=== PATIENT | female | born 1990 | race Caucasian/White ===

== ENCOUNTER 2021-01-30 16:04 | Emergency (ER) | payer SELFPAY ==
[~2021-01-30] VITALS: Ht 160 cm; Wt 97.4 kg
--- NOTE | 2021-01-30 16:39 | PHYS DOC ---
Past History Additional Past Medical Histor: PTSD; "hydradentist supratiba" skin condition (FRANCOIS PATEL APRN) Past Surgical History: , Oophorectomy, Tubal ligation, Other Additional Past Surgical Histo: ectopic preg (FRANCOIS PATEL APRN) Alcohol Use: Rarely (FRANCOIS PATEL APRN) General Adult EDM: Chief Complaint: COUGH HPI: HPI: Patient is a 30-year-old female who presents to the emergency department for multiple complaints including nonproductive cough, shortness of breath, fever, generalized chest tightness, nausea, vomiting, diarrhea that started 1/2 weeks ago. Chest tightness is worse with deep inspiration and cough. She has been taking [id number]-[id number] cough medication at home without any relief in her symptoms. Patient reports that she was seen at her primary care provider's office after the onset of her symptoms and had a negative Covid test. Patient denies any sick exposures, loss of taste or smell. She is not vaccinated for COVID-19. (FRANCOIS PATEL APRN) Review of Systems: Review of Systems: 14 body systems of the review of systems have been reviewed. See HPI for pertinent positive and negative responses, otherwise all other systems are negative, nonpertinent or noncontributory (FRANCOIS PATEL APRN) Current Medications: Current Meds: Current Medications Medications (Trade) Dose Ordered Sig/Toño Start Time Stop Time Status Last Admin Dose Admin Sodium Chloride 1,000 ml @ 1,000 mls/hr 1X ONCE 01/30/21 16:45 01/30/21 17:44 UNV (FRANCOIS PATEL APRN) Allergies: Allergies: Allergies Coded Allergies Type Severity Reaction Last Updated Verified No Known Drug Allergies 01/30/21 No (FRANCOIS PATEL APRN) Physical Exam: PE: Constitutional: Well developed, well nourished, no acute distress, non-toxic appearance. [] HENT: Normocephalic, atraumatic, bilateral external ears normal, oropharynx moist, no oral exudates, nose normal. [] Eyes: PERRL, EOMI, conjunctiva normal, no discharge. [] Neck: Normal range of motion, no stridor Cardiovascular:Heart rate tachycardia rhythm, no murmur [] Lungs & Thorax: Bilateral breath sounds clear to auscultation [] Abdomen: Bowel sounds normal, soft, no tenderness, no masses, no pulsatile m asses. [] Skin: Warm, dry, no erythema, no rash. [] Back: Normal range of motion Extremities: No tenderness, no cyanosis, no clubbing, ROM intact, no edema. [] Neurologic: Alert and oriented X 3, normal motor function, normal sensory function, no focal deficits noted. [] Psychologic: Affect normal, judgement normal, mood normal. [] (FRANCOIS PATEL APRN) Current Patient Data: Labs: Laboratory Tests Test 01/30/21 17:00 White Blood Count 14.8 x10^3/uL Red Blood Count 4.31 x10^6/uL Hemoglobin 12.4 g/dL Hematocrit 36.8 % Mean Corpuscular Volume 85 fL Mean Corpuscular Hemoglobin 29 pg Mean Corpuscular Hemoglobin Concent 34 g/dL Red Cell Distribution Width 14.0 % Platelet Count 673 x10^3/uL Neutrophils (%) (Auto) 60 % Lymphocytes (%) (Auto) 31 % Monocytes (%) (Auto) 5 % Eosinophils (%) (Auto) 4 % Basophils (%) (Auto) 1 % Neutrophils # (Auto) 8.8 x10^3uL Lymphocytes # (Auto) 4.6 x10^3/uL Monocytes # (Auto) 0.8 x10^3/uL Eosinophils # (Auto) 0.6 x10^3/uL Basophils # (Auto) 0.1 x10^3/uL Sodium Level 140 mmol/L Potassium Level 3.9 mmol/L Chloride Level 105 mmol/L Carbon Dioxide Level 24 mmol/L Anion Gap 11 Blood Urea Nitrogen 9 mg/dL Creatinine 0.8 mg/dL Estimated GFR (Cockcroft-Gault) 83.7 Glucose Level 100 mg/dL Calcium Level 9.0 mg/dL Troponin I High Sensitivity < 4 ng/L Influenza Type A (Rapid) Negative Influenza Type B (Rapid) Negative Current Medications Medications (Trade) Dose Ordered Sig/Toño Route PRN Reason Start Time Stop Time Status Last Admin Dose Admin Sodium Chloride 1,000 ml @ 1,000 mls/hr 1X ONCE IV 01/30/21 16:45 01/30/21 17:44 01/30/21 16:58 Vital Signs: Vital Signs Date Time Temp Pulse Resp B/P (MAP) Pulse Ox O2 Delivery O2 Flow Rate FiO2 01/30/21 16:18 98.8 108 18 125/68 (87) 98 Room Air (FRANCOIS PATEL APRN) EKG: EKG: EKG performed by ER staff at 1644 shows sinus tachycardia with a rate of 104, QTC of 432, no STEMI read by Dr. Jeffries at 1709. [] (FRANCOIS PATEL APRN) Radiology/Procedures: Radiology/Procedures: []PROCEDURE: PORTABLE CHEST 1V EXAM: Chest, single view. HISTORY: Cough. Shortness of air. COMPARISON: None. FINDINGS: A frontal view of the chest is obtained. There is no infiltrate, pleural effusion or pneumothorax. The heart is normal in size. IMPRESSION: No acute pulmonary finding. Electronically signed by: Yari Craven MD (01/30/2021 4:52 PM) [id number] DICTATED AND SIGNED BY: YARI CRAVEN MD DATE: 01/30/211651 CC: FRANCOIS PATEL APRN; PCP,NO ~MTH0 0 (FRANCOIS PATEL APRN) Heart Score: C/O Chest Pain: Yes HEART Score for Chest Pain: HEART Score for Chest Pain Response (Comments) Value History Slighlty/Non-Suspicious 0 Age < 45 0 Risk Factors No Risk Factors 0 Total 0 Risk Factors: Risk Factors: DM, Current or recent (<one month) smoker, HTN, HLP, family history of CAD, obesity. Risk Scores: Score 0 - 3: 2.5% MACE over next 6 weeks - Discharge Home Score 4 - 6: 20.3% MACE over next 6 weeks - Admit for Clinical Observation Score 7 - 10: 72.7% MACE over next 6 weeks - Early Invasive Strategies (FRANCOIS PATEL APRN) Course & Med Decision Making: Course & Med Decision Making Pertinent Labs and Imaging studies reviewed. (See chart for details) [] Patient presents to the emergency department for multiple complaints including a productive cough, shortness of breath, fever, nausea, vomiting, diarrhea, generalized chest tightness that is worse with cough. Patient reports nausea but no vomiting today. She had an episode of diarrhea today. Patient is mildly tachycardic, she is afebrile and not hypoxic. Work-up in the ER consisted of blood work, EKG, chest x-ray. Patient's tachycardia was treated with IV fluids. Following treatment in the emergency department, patient's tachycardia has improved and her heart rate is 98. Patient's O2 saturations remain normal and she is not hypoxic. Patient's chest x-ray shows no acute findings. Negative influenza test, negative troponin, negative BMP. My mild leukocytosis noted with white blood cell count of 14.8 but patient has reported vomiting. Patient was Covid tested in the emergency department and she will be notified of those results when they become available in approximately 1 to 2 days via telephone. Patient advised to self isolate until she receives these results. Patient will be discharged home with albuterol inhaler that she can use for shortness of breath and Tessalon Perles for her cough. Patient advised to take Tylenol and/or ibuprofen for her pain or fevers. Advised to increase fluids and rest. I discussed with patient all findings and diagnostic testing as well as the need to follow-up with PCP for further evaluation and treatment or return to the ER if any new or worsening symptoms. Strict return precautions were also discussed at length. Patient voiced understanding and agreement with the plan. Patient is hemodynamically stable at the time of disposition. (FRANCOIS PATEL APRN) Dragon Disclaimer: Dragon Disclaimer: This electronic medical record was generated, in whole or in part, using a voice recognition dictation system. (FRANCOIS PATEL APRN) Departure Departure: Impression: Primary Impression: Person under investigation for COVID-19 Disposition: HOME / SELF CARE / HOMELESS Condition: GOOD Referrals: PCP,NO (PCP) Patient Instructions: Cough, Adult Additional Instructions: You were seen in the emergency department for cough, shortness of breath, fever, generalized chest tightness with coughing. Your work-up in the ER was unremarkable. You had a negative influenza test. We tested you in the emergency department today for COVID-19 you will be notified of those results and they become available in approximately 2 days. Please self isolate until you receive these results. Please increase your fluids and rest. Please take Tylenol and/or ibuprofen for your pain or fevers. You are being discharged home with an albuterol inhaler that you can use as needed for shortness of breath. You are also being discharged home with a cough medication, please use this as directed. Follow-up with your primary care provider tomorrow regarding your ER visit. Please return to the emergency department if you develop worsening of your shortness of breath, high fevers refractory to treatment, intractable nause a or vomiting, chest pain, weakness. Scripts Benzonatate (BENZONATATE) 200 Mg Capsule 1 CAP PO PRN TID PRN for cough for 7 Days, #21 CAP 0 Refills Prov: FRANCOIS PATEL APRN 01/30/21 Albuterol Sulfate (PROAIR HFA INHALER) 8.5 Gm Hfa.aer.ad 2 PUFF IH PRN Q4-6HRS PRN for wheezing for 21 Days, #1 INHALER 0 Refills as needed for wheezing Prov: FRANCOIS PATEL APRN 01/30/21 Attending Co-Sign Attending Co-Sign The patient was seen and interviewed as well as examined at the bedside. The chart was reviewed. The case was discussed. Agree with the plan of care. (SHYANN GUY MD) FRANCOIS PATEL APRN Jan 30, 2021 16:38 SHYANN GUY MD Jan 31, 2021 18:59
[2021-01-30] MEDS ORDERED: IV NORMAL SALINE 1,000ML 1,000 ML IV ONE (16:45)
--- NOTE | 2021-01-30 16:55 | RAD ---
EXAM: Chest, single view. HISTORY: Cough. Shortness of air. COMPARISON: None. FINDINGS: A frontal view of the chest is obtained. There is no infiltrate, pleural effusion or pneumo thorax. The heart is normal in size. IMPRESSION: No acute pulmonary finding. Electronically signed by: Yari Sun MD (01/30/2021 4:52 PM) [id number]
[2021-01-30 17:17] LABS: BASO # 0.1 x10^3/uL (0.0-0.2); BASO % 1 % (0-3); EOS # 0.6 x10^3/uL (0.0-0.7); EOS % 4 % (0-3); HEMATOCRIT 36.8 % (36.0-47.0); HEMOGLOBIN 12.4 g/dL (12.0-15.5); LYMPH # 4.6 x10^3/uL (1.0-4.8); LYMPH % 31 % (24-48); MEAN CORPUSCULAR HEMOGLOBIN 29 pg (25-35); MEAN CORPUSCULAR HGB CONC 34 g/dL (31-37); MEAN CORPUSCULAR VOLUME 85 fL (79-100); MONO # 0.8 x10^3/uL (0.0-1.1); MONO % 5 % (0-9); NEUT # 8.8 x10^3uL (1.8-7.7); NEUT % 60 % (31-73); PLATELET COUNT 673 x10^3/uL (140-400); RED BLOOD COUNT 4.31 x10^6/uL (3.50-5.40); WHITE BLOOD COUNT 14.8 x10^3/uL (4.0-11.0)
[2021-01-30 17:26] LABS: CREATININE 0.8 mg/dL (0.6-1.0); GFR 83.7; POTASSIUM 3.9 mmol/L (3.5-5.1)
[2021-01-30 17:29] LABS: INFLUENZA A PATIENT NEGATIVE (NEGATIVE); INFLUENZA B PATIENT NEGATIVE (NEGATIVE)
[2021-01-30] MEDS ORDERED: ALBU2.5V8 IH (17:45)
[2021-01-30] MEDS ORDERED: BENZ200C47 PO (17:45)
--- NOTE | 2021-01-30 18:16 | EKG ---
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
[2021-01-30 18:48] VITALS: BP 108/88
== END 2021-01-30 18:56 | disposition home or self-care (01) ==
LOC: ER 16:04
DX: R06.02 Shortness of breath (principal); R07.89 Other chest pain; R11.2 Nausea with vomiting, unspecified; R19.7 Diarrhea, unspecified; R05.9 Cough, unspecified; R50.9 Fever, unspecified; Z20.822 Contact with and (suspected) exposure to COVID-19
CPT/HCPCS: 71045; 80048; 84484; 85025; 87804; 93005; 96360; 96361; 99285; C9803; J7030; U0003

== ENCOUNTER 2021-03-23 15:53 | Emergency (ER) | payer OTHER ==
[~2021-03-23] VITALS: Ht 160 cm; Wt 97.4 kg
[~2021-03-23 15:53] MED LIST: ALBU2.5V8 IH; BENZ200C47 PO
--- NOTE | 2021-03-23 16:08 | PHYS DOC ---
Past History Additional Past Medical Histor: PTSD; "hydradentist supratiba" skin condition Past Surgical History: , Oophorectomy, Tubal ligation, Other Additional Past Surgical Histo: ectopic preg Alcohol Use: Rarely Adult General Chief Complaint Chief Complaint: ABSCESS HPI HPI Patient is a [age] year old [sex] who presents with [] Review of Systems Review of Systems Constitutional: Denies fever or chills [] Eyes: Denies change in visual acuity, redness, or eye pain [] HENT: Denies nasal congestion or sore throat [] Respiratory: Denies cough or shortness of breath [] Cardiovascular: No additional information not addressed in HPI [] GI: Denies abdominal pain, nausea, vomiting, bloody stools or diarrhea [] : Denies dysuria or hematuria [] Musculoskeletal: Denies back pain or joint pain [] Integument: Denies rash or skin lesions [] Neurologic: Denies headache, focal weakness or sensory changes [] Endocrine: Denies polyuria or polydipsia [] All other systems were reviewed and found to be within normal limits, except as documented in this note. Allergies Allergies Allergies Coded Allergies Type Severity Reaction Last Updated Verified No Known Drug Allergies 01/30/21 No Physical Exam Physical Exam Constitutional: Well developed, well nourished, no acute distress, non-toxic appearance. [] HENT: Normocephalic, atraumatic, bilateral external ears normal, oropharynx moist, no oral exudates, nose normal. [] Eyes: PERRLA, EOMI, conjunctiva normal, no discharge. [] Neck: Normal range of motion, no tenderness, supple, no stridor. [] Cardiovascular:Heart rate regular rhythm, no murmur [] Lungs & Thorax: Bilateral breath sounds clear to auscultation [] Abdomen: Bowel sounds normal, soft, no tenderness, no masses, no pulsatile masses. [] Skin: Warm, dry, no erythema, no rash. [] Back: No tenderness, no CVA tenderness. [] Extremities: No tenderness, no cyanosis, no clubbing, ROM intact, no edema. [] Neurologic: Alert and oriented X 3, normal motor function, normal sensory function, no focal deficits noted. [] Psychologic: Affect normal, judgement normal, mood normal. [] EKG EKG [] Radiology/Procedures Radiology/Procedures [] Heart Score Risk Factors: Risk Factors: DM, Current or recent (<one month) smoker, HTN, HLP, family history of CAD, obesity. Risk Scores: Risk Factors: DM, Current or recent (<one month) smoker, HTN, HLP, family history of CAD, obesity. Course & Med Decision Making Course & Med Decision Making Pertinent Labs and Imaging studies reviewed. (See chart for details) [] Dragon Disclaimer Dragon Disclaimer This electronic medical record was generated, in whole or in part, using a voice recognition dictation system. Departure Departure: Impression: Primary Impression: Hidradenitis suppurativa Disposition: HOME / SELF CARE / HOMELESS Condition: STABLE Referrals: PCP,NO (PCP) Patient Instructions: Hidradenitis Suppurativa, Sweat Gland Abscess SUSAN SALCIDO DO Mar 23, 2021 16:08
--- NOTE | 2021-03-23 16:25 | PHYS DOC ---
Past History Additional Past Medical Histor: PTSD; "hidradenitis supratiba" skin condition (GENESIS PAYNE APRN) Past Surgical History: , Oophorectomy, Tubal ligation, Other Additional Past Surgical Histo: ectopic preg (GENESIS PAYNE APRN) Alcohol Use: None (GENESIS PAYNE APRN) General Adult EDM: Chief Complaint: ABSCESS HPI: HPI: Patient is a 31-year-old female who presents today with right leg pain. Patient states that she has Hidradenitis suppurativa and currently has a abscess on the right inner thigh area. Patient states that it drained a couple of days ago when she was able to extract "sac" from this area but it has continued to have pain in that area. Patient denies fever chills at this time. Patient states that she has an appointment with a [place] masseuse on April 04 for further management of this current medical condition but she has been unable to get in sooner. She is also try to establish primary care with the clinic here at [facility] but she has been unable to do so due to the fact that she has no insurance at this time. (GENESIS PAYNE APRN) Review of Systems: Review of Systems: Constitutional: Denies fever or chills Eyes: Denies change in visual acuity HENT: Denies nasal congestion or sore throat Respiratory: Denies cough or shortness of breath Cardiovascular: Denies chest pain or edema GI: Denies abdominal pain, nausea, vomiting, bloody stools or diarrhea : Denies dysuria Musculoskeletal: Right inner thigh pain denies back pain or joint pain Integument: Right inner thigh abscess denies rash Neurologic: Denies headache, focal weakness or sensory changes Endocrine: Denies polyuria or polydipsia Lymphatic: Denies swollen glands Psychiatric: Denies depression or anxiety (GENESIS PAYNE APRN) Allergies: Allergies: Allergies Coded Allergies Type Severity Reaction Last Updated Verified No Known Drug Allergies 01/30/21 No (GENESIS PAYNE APRN) Physical Exam: PE: Constitutional: Well developed, well nourished, mild distress, non-toxic appearance. [] HENT: Normocephalic, atraumatic, bilateral external ears normal, oropharynx moist, no oral exudates, nose normal. [] Eyes: PERRLA, EOMI, conjunctiva normal, no discharge. [] Neck: Normal range of motion, no tenderness, supple, no stridor. [] Cardiovascular:Heart rate regular rhythm, no murmur [] Lungs & Thorax: Bilateral breath sounds clear to auscultation [] Abdomen: Bowel sounds normal, soft, no tenderness, no masses, no pulsatile masses. [] Skin: Patient has a raised red area to the right inner thigh approximately 3 cm x 1-1/2 cm, there is no erythema no warmth to that area. No drainage to that area. Area is tender to the touch Back: No tenderness, no CVA tenderness. [] Extremities: Tenderness noted in the right inner thigh, healed raised red area noted no drainage, no erythema, no warmth, cap refills less than 2 seconds in the extremity pedal pulses 2+ sensory is intact. Neurologic: Alert and oriented X 3, normal motor function, normal sensory function, no focal deficits noted. [] Psychologic: Affect normal, judgement normal, mood normal. [] (GENESIS PAYNE APRN) Current Patient Data: Vital Signs: Vital Signs Date Time Temp Pulse Resp B/P (MAP) Pulse Ox O2 Delivery O2 Flow Rate FiO2 03/23/21 16:43 98.4 129 30 136/102 (113) 96 Room Air (GENESIS PAYNE APRN) EKG: EKG: [] (GENESIS PAYNE APRN) Radiology/Procedures: Radiology/Procedures: [] (GENESIS PAYNE APRN) Heart Score: C/O Chest Pain: N/A Risk Factors: Risk Factors: DM, Current or recent (<one month) smoker, HTN, HLP, family history of CAD, obesity. Risk Scores: Score 0 - 3: 2.5% MACE over next 6 weeks - Discharge Home Score 4 - 6: 20.3% MACE over next 6 weeks - Admit for Clinical Observation Score 7 - 10: 72.7% MACE over next 6 weeks - Early Invasive Strategies (GENESIS PAYNE APRN) Course & Med Decision Making: Course & Med Decision Making Pertinent Labs and Imaging studies reviewed. (See chart for details) Patient has a chronic medical condition of hidradenitis suppurativa, and the fact that she stated that she was able to excrete drainage from this area, I will not I&D this area there is no erythema there is no redness there is no inoculated area. Patient will be given some antibiotics and some pain medication and instructed to follow-up with the [place] masseuse on the as previously scheduled. Patient verbalized understanding of this and is requesting a work note for the next couple of days. (GENESIS PAYNE APRN) Course & Med Decision Making I was the Attending physician on the above date of service of this patient. This patient was evaluated, examined, treated, and dispositioned from the emergency department by the mid-level practitioner. I agreed with the need to avoid incision and drainage to avoid scarring. Close PCP and surgeon follow-up in ou tpatient setting advised Electronically signed, Susan Salcido DO (SUSAN SALCIDO DO) Deon Disclaimer: Deon Disclaimer: This electronic medical record was generated, in whole or in part, using a voice recognition dictation system. (GENESIS PAYNE APRN) Departure Departure: Impression: Primary Impression: Hidradenitis suppurativa Disposition: HOME / SELF CARE / HOMELESS Condition: STABLE Referrals: PCP,MARCELL (PCP) MODESTO RUEDA MD Patient Instructions: Hidradenitis Suppurativa, Sweat Gland Abscess Additional Instructions: Bactrim 1 tablet twice daily for 7 full days Hydrocodone take 1 tablet every 6 hours as needed for severe pain [id number] ibuprofen as labeled directed for mild to moderate pain Follow-up with Dr. Rueda [facility] masseuse as directed on April 04 as previously scheduled Return to the emergency department if you develop a fever or have increased pain and swelling in this area. Scripts Hydrocodone Bit/Acetaminophen (HYDROCODONE-APAP 5-325 ) 1 Each Tablet 1 TAB PO PRN Q6HRS PRN for PAIN, #14 TAB 0 Refills Prov: GENESIS PAYNE APRN 03/23/21 Sulfamethoxazole/Trimethoprim (BACTRIM DS TABLET) 1 Each Tablet 1 TAB PO BID for abscess for 7 Days, #14 TAB 0 Refills Prov: GENESIS PAYNE APRN 03/23/21 GENESIS PAYNE APRN Mar 23, 2021 16:25 SUSAN SALCIDOb 13, 2022 13:26
[2021-03-23] MEDS ORDERED: HYDR-2155 PO (16:37)
[2021-03-23] MEDS ORDERED: SULF1TAB24 PO (16:37)
[2021-03-23 16:43] VITALS: BP 136/102
== END 2021-03-23 16:43 | disposition home or self-care (01) ==
LOC: ER 15:53
DX: L73.2 Hidradenitis suppurativa (principal)
CPT/HCPCS: 99283-25

== ENCOUNTER 2021-07-05 07:19 | Emergency (ER) | payer OTHER ==
[~2021-07-05] VITALS: Ht 160 cm; Wt 87.7 kg
[~2021-07-05 07:19] MED LIST changes: +HYDR-2155 PO; +SULF1TAB24 PO
--- NOTE | 2021-07-05 07:55 | PHYS DOC ---
Past History Additional Past Medical Histor: PTSD; "hidradenitis supratiba" skin condition Past Surgical History: , Oophorectomy, Tonsillectomy, Tubal ligation, Other Additional Past Surgical Histo: ectopic preg Alcohol Use: None General Adult EDM: Chief Complaint: BACK PAIN - NO INJURY HPI: HPI: Patient is a 31-year-old female coming in for right lower back and hip pain. Patient states the pain radiates down her outer leg to her foot. Patient states she has had this pain for the past 6 months but is worse over the past 3 days. Patient states that she occasionally has to do stairs activities at work but denies any falls. Denies any hematuria or dysuria. Patient denies any recent illness, fevers, unintended weight loss. Denies any numbness. Review of Systems: Review of Systems: All other systems within normal limits except for as noted in the HPI Current Medications: Current Meds: Current Medications Medications (Trade) Dose Ordered Sig/Toño Start Time Stop Time Status Last Admin Dose Admin Ketorolac Tromethamine (Toradol Im) 60 mg 1X ONCE 07/05/21 08:00 07/05/21 08:01 UNV Allergies: Allergies: Allergies Coded Allergies Type Severity Reaction Last Updated Verified No Known Drug Allergies 01/30/21 No Physical Exam: PE: Constitutional: Well developed, well nourished, no acute distress, non-toxic appearance. [] HENT: Normocephalic, atraumatic, bilateral external ears normal, nose normal. [] Eyes: PERRLA, conjunctiva normal, no discharge. [] Neck: No rigidity, supple, no stridor. [] Cardiovascular: Regular rate and rhythm, brisk cap refill [] Lungs & Thorax: Non labored symmetric respirations, no tachypnea or respiratory distress [] Abdomen: Soft, nondistended. Skin: Warm, dry, no erythema, no rash. [] Back: No step-off or deformity, tenderness on the lower lumbar spine and right low back. Extremities: No deformities, range of motion grossly intact, no lower extremity edema [] Neurologic: Alert and oriented X 3, no focal deficits noted. [] Psychologic: Affect normal, judgement normal, mood normal. [] Current Patient Data: Vital Signs: Vital Signs Date Time Temp Pulse Resp B/P (MAP) Pulse Ox O2 Delivery O2 Flow Rate FiO2 07/05/21 07:32 98.9 108 16 134/82 (99) 97 Room Air EKG: EKG: [] Radiology/Procedures: Radiology/Procedures: [address] [address] IMAGING REPORT Signed PATIENT: RIRI MILLIGAN ACCOUNT: [id number] : 1990 LOCATION: ER AGE: 31 SEX: F EXAM STATUS: REG ER ORD. PHYSICIAN: GARY FENTON MD REASON: pain PROCEDURE: LUMBAR SPINE 2-3V EXAM: Lumbar spine, 3 views. HISTORY: Pain. COMPARISON: None. FINDINGS: 3 views of the lumbar spine are obtained. There are hypoplastic T12 ribs and 5 nonrib-bearing lumbar segments. There is straightening of lumbar lordosis. There is no significant listhesis. There is a tiny ossicle along the anterior superior endplate of L1, likely developmental in etiology. There is slight disc space narrowing at L4-L5 and L5-S1. There is subchondral sclerosis involving the sacroiliac joints. No joint space widening or osseous erosion is seen. IMPRESSION: Slight disc space narrowing at the lower lumbar levels. No acute osseous finding. Electronically signed by: Yari Craven MD (07/05/2021 8:42 AM) [id number] DICTATED AND SIGNED BY: YARI CRAVEN MD DATE: 07/05/21 08 CC: GARY FENTON MD; PCP,NO ~ [][address] [address] IMAGING REPORT Signed PATIENT: RIRI MILLIGAN ACCOUNT: [id number] : 1990 LOCATION: ER AGE: 31 SEX: F EXAM STATUS: REG ER ORD. PHYSICIAN: GARY FENTON MD REASON: pain PROCEDURE: HIP RIGHT 1 VIEW WITH PELVIS EXAM: Pelvis and right hip, 2 views. HISTORY: Pain. COMPARISON: None. FINDINGS: A frontal view of the pelvis and frog-leg view the right hip are obtained. There is no acute fracture, dislocation or subluxation. The femoral head is normal in configuration. There is subchondral sclerosis involving the sacroiliac joints. There is no convincing sacroiliac joint space widening or osseous erosion. IMPRESSION: 1. No acute osseous finding. 2. Subchondral sclerosis involving the sacroiliac joints. Electronically signed by: Yari Craven MD (07/05/2021 8:41 AM) [id number] DICTATED AND SIGNED BY: YARI CRAVEN MD DATE: 07/05/21839 CC: GARY FENTON MD; PCP,NO ~ Heart Score: C/O Chest Pain: No Risk Factors: Risk Factors: DM, Current or recent (<one month) smoker, HTN, HLP, family history of CAD, obesity. Risk Scores: Score 0 - 3: 2.5% MACE over next 6 weeks - Discharge Home Score 4 - 6: 20.3% MACE over next 6 weeks - Admit for Clinical Observation Score 7 - 10: 72.7% MACE over next 6 weeks - Early Invasive Strategies Course & Med Decision Making: Course & Med Decision Making Pertinent Labs and Imaging studies reviewed. (See chart for details) [] Dragon Disclaimer: Dragon Disclaimer: This electronic medical record was generated, in whole or in part, using a voice recognition dictation system. Departure Departure: Impression: Primary Impression: Back pain with right-sided sciatica Disposition: HOME / SELF CARE / HOMELESS Condition: STABLE Referrals: PCP,NO (PCP) Patient Instructions: Back Exercises Scripts Cyclobenzaprine Hcl (CYCLOBENZAPRINE HCL) 10 Mg Tablet 1 TAB PO PRN TID PRN for MUSCLE PAIN for 5 Days, #15 TAB Prov: GARY FENTON MD 07/05/21 Meloxicam (MELOXICAM) 15 Mg Tablet 1 TAB PO DAILY for NSAID for 20 Days, #20 TAB 0 Refills Prov: GARY FENTON MD 07/05/21 Methylprednisolone (MEDROL) 4 Mg Tab.ds.pk 1 PKG PO UD for steroid, #1 PKG Prov: GARY FENTON MD 07/05/21 GARY FENTON MD July 05, 2021 07:55
[2021-07-05] MEDS ORDERED: KETOROLAC 60 MG/2 ML VIAL. IM ONE (08:00)
[2021-07-05 08:41] LABS: BACTERIA,URINE MOD /HPF (0-FEW); CLARITY,URINE CLOUDY; COLOR,URINE YELLOW; GLUCOSE,URINE NEG (NEG); NITRITE,URINE NEG (NEG); RBC,URINE OCC /HPF (0-2); SQUAMOUS EPITHELIAL CELL,UR MANY /LPF; UROBILINOGEN,URINE 0.2 mg/dL (0.2 mg/dL)
--- NOTE | 2021-07-05 08:44 | RAD ---
EXAM: Pelvis and right hip, 2 views. HISTORY: Pain. COMPARISON: None. FINDINGS: A frontal view of the pelvis and frog-leg view the right hip are obtained. There is no acut e fracture, dislocation or subluxation. The femoral head is normal in configuration. There is subchon dral sclerosis involving the sacroiliac joints. There is no convincing sacroiliac joint space widenin g or osseous erosion. IMPRESSION: 1. No acute osseous finding. 2. Subchondral sclerosis involving the sacroiliac joints. Electronically signed by: Yari Sun MD (07/05/2021 8:41 AM) [id number]
--- NOTE | 2021-07-05 08:45 | RAD ---
EXAM: Lumbar spine, 3 views. HISTORY: Pain. COMPARISON: None. FINDINGS: 3 views of the lumbar spine are obtained. There are hypoplastic T12 ribs and 5 nonrib-beari ng lumbar segments. There is straightening of lumbar lordosis. There is no significant listhesis. The re is a tiny ossicle along the anterior superior endplate of L1, likely developmental in etiology. Th ere is slight disc space narrowing at L4-L5 and L5-S1. There is subchondral sclerosis involving the s acroiliac joints. No joint space widening or osseous erosion is seen. IMPRESSION: Slight disc space narrowing at the lower lumbar levels. No acute osseous finding. Electronically signed by: Yari Sun MD (07/05/2021 8:42 AM) [id number]
[2021-07-05] MEDS ORDERED: CYCL10TA19 PO (09:32)
[2021-07-05] MEDS ORDERED: METH4TAB2 PO (09:32)
[2021-07-05] MEDS ORDERED: MELO15TA23 PO (09:32)
[2021-07-05 10:00] VITALS: BP 122/77
== END 2021-07-05 10:09 | disposition home or self-care (01) ==
LOC: ER 07:19
DX: M54.41 Lumbago with sciatica, right side (principal); Z98.890 Other specified postprocedural states; Z98.51 Tubal ligation status; Z90.722 Acquired absence of ovaries, bilateral
CPT/HCPCS: 72100; 73501; 81001; 81025; 87086; 96372; 99284; J1885